=== PATIENT | male | born 1965 | race Hispanic/Latino ===

== ENCOUNTER 2016-07-19 10:00 | Inpatient (IN) | payer OTHER ==
[2016-08-18 08:24] VITALS: BMI 50.8
[2016-09-16] MEDS ORDERED: Lactated Ringer's 1,000 ML IV ONE ×3 (07:00→10:00)
[2016-09-16] MEDS ORDERED: Dexamethasone 4 mg/1 ml IVPB ONE (07:00)
[2016-09-16] MEDS ORDERED: HYDROmorphone 0.5 mg/0.5 ml ISec IVP PRN ×3 (07:28→14:00)
[2016-09-16] MEDS ORDERED: Bupivacaine HCl 0.25% PF (10 ml) Inj ONE ×2 (07:32)
[2016-09-16] MEDS ORDERED: ceFAZolin IV 2 gm in Dextrose 0 GM/0 ML BAG IVPB ONE (07:33)
[2016-09-16] MEDS ORDERED: Propofol 10 mg/ml Inj (20 ML) ONE (07:37)
[2016-09-16] MEDS ORDERED: Neostigmine Methylsulfate 3mg/3ml Syringe IV ONE (10:17)
--- NOTE | 2016-09-16 10:50 | PCM.SURG1 ---
Surgeon's Initial Post Op Note - Surgeon's Notes Surgeon: Dr. Fya Plate Filler: Dr. Downs, Dr. Bazna PGY-2 Type of Anesthesia: General Endo Pre-Operative Diagnosis: morbid obesity, cholelithiasis Operative Findings: see operative report Post-Operative Diagnosis: same Operation Performed: sleeve gastrectomy. laparoscopic cholecystectomy Specimen/Specimens Removed: greater curvature stomach. gallbladder Estimated Blood Loss: EBL {In ML}: 100 Blood Products Given: N/A Drains Used: No Drains Post-Op Condition: Good Date of Surgery/Procedure: 09/16/16 Time of Surgery/Procedure: 08:00
[2016-09-16] MEDS: Lactated Ringer's 1,000 ML IV SCH ×2 (15:00→22:00)
[2016-09-16 18:59] VITALS: RESP 20
[2016-09-17] MEDS: Lactated Ringer's 1,000 ML IV SCH ×2 (03:10→05:40)
[2016-09-17] MEDS ORDERED: Iohexol 240 200 ML IJ ONE (07:34)
[2016-09-17] MEDS ORDERED: Barium Sulfate for Susp 96% w/w 176g Bottle PR ONE (07:35)
[2016-09-17 08:37] LABS: BASO # 0.1 K/uL (0.0-0.2); BASO % 0.7 % (0.0-2.0); HEMOGLOBIN 14.1 g/dL (12.0-18.0); LYMPH # 1.6 K/uL (1.0-4.3); LYMPH % 11.2 % (20.0-40.0); MEAN CELL VOLUME 84.8 fL (80.0-94.0); MEAN CORPUSCULAR HEMOGLOBIN 27.7 pg (27.0-31.0); MEAN CORPUSCULAR HGB CONC 32.7 g/dL (33.0-37.0); MEAN PLATELET VOLUME 8.8 fL (7.2-11.7); MONO # 0.8 K/uL (0.0-0.8); MONO % 5.5 % (0.0-10.0); NEUT # 11.6 K/uL (1.8-7.0); NEUT % 82.6 % (50.0-75.0); RBC 5.1 Mil/uL (4.40-5.90); RED CELL DISTRIBUTION WIDTH 14.5 % (11.5-14.5); WHITE BLOOD COUNT 14.1 K/uL (4.8-10.8)
--- NOTE | 2016-09-17 08:41 | CP.PCM.PN ---
Subjective - Date & Time of Evaluation Date of Evaluation: 09/17/16 Time of Evaluation: 06:45 - Subjective Subjective: Bariatric Sx progress note for Dr. Chepe Hernandez, PGY-1 Pt S & E at bedside. Pt doing well overnight, pain well controlled, OOBTC, ambulating. Denies N/V/F/ C. Per nursing, no acute events overnight. HR<120 overnight on PO cardizem. Objective - Vital Signs/Intake and Output Vital Signs (last 24 hours): Temp Pulse Resp BP Pulse Ox 98.1 F 93 H 20 110/84 95 09/17/16 05:25 09/17/16 05:25 09/17/16 05:25 09/17/16 05:25 09/17/16 05:25 Intake and Output: 09/17/16 09/17/16 06:59 18:59 Intake Total 1750 Balance 1750 - Medications Medications: Current Medications Diltiazem HCl (Cardizem) 120 mg PO TID [facility] Last Admin: 09/16/16 18:00 Dose: 120 mg Enoxaparin Sodium (Lovenox) 40 mg SC DAILY [facility] Famotidine (Pepcid) 20 mg IVP Q12 [facility] Last Admin: 09/16/16 22:33 Dose: 20 mg Hydromorphone HCl (Dilaudid) 1 mg IVP Q2H PRN PRN Reason: Pain, moderate (4-7) Lactated Ringer's (Lactated Ringer's) 1,000 mls @ 150 mls/hr IV .Q6H40M [facility] Last Admin: 09/17/16 05:40 Dose: 150 mls/hr Ketorolac Tromethamine (Toradol) 30 mg IVP Q6 [facility] Stop: 09/18/16 06:01 Last Admin: 09/17/16 05:33 Dose: 30 mg Metoclopramide HCl (Reglan) 10 mg IVP ONCE [facility] Last Admin: 09/17/16 05:36 Dose: 10 mg Metoclopramide HCl (Reglan) 10 mg IVP Q6H [facility] Last Admin: 09/17/16 05:36 Dose: Not Given Ondansetron HCl (Zofran Inj) 4 mg IVP Q6H PRN PRN Reason: Nausea/Vomiting Ondansetron HCl (Zofran Inj) 4 mg IVP ONCE PRN PRN Reason: Nausea/Vomiting - Constitutional Appears: Non-toxic, No Acute Distress - Head Exam Head Exam: ATRAUMATIC, NORMAL INSPECTION, NORMOCEPHALIC - Eye Exam Eye Exam: EOMI, Normal appearance - ENT Exam ENT Exam: Mucous Membranes Moist, Normal Exam - Neck Exam Neck Exam: Full ROM, Normal Inspection - Respiratory Exam Respiratory Exam: Clear to Ausculation Bilateral, NORMAL BREATHING PATTERN. absent: Rales, Rhonchi, Wheezes - Cardiovascular Exam Cardiovascular Exam: Tachycardia, +S1, +S2 - GI/Abdominal Exam GI & Abdominal Exam: Soft. absent: Distended (obese), Firm, Guarding, Rigid, Tenderness - Extremities Exam Extremities Exam: Normal Inspection. absent: Pedal Edema - Neurological Exam Neurological Exam: Alert, Awake, CN II-XII Intact, Oriented x3 - Psychiatric Exam Psychiatric exam: Normal Affect, Normal Mood - Skin Skin Exam: Dry, Normal Color, Warm. absent: Intact (4 upper abdominal incisions with glue in place, non erythematous, non tender, no drainage) Assessment and Plan - Assessment and Plan (Free Text) Assessment: 51M POD#1 s/p sleeve gastrectomy, laparoscopic cholecystectomy. Doing well overnight. Plan: cont pain control Cont HR control FU AM labs FU UGIS today If UGIS neg, will advance to bariatric CLD for lunch Ok to start Lovenox today DW attending Mary, PGY-1
[2016-09-17 09:21] LABS: BLOOD UREA NITROGEN 19 mg/dL (9-20); GFR AFRICAN-AMERICAN > 60; GFR NON-AFRICAN AMERICAN > 60
[2016-09-17 09:22] VITALS: BP 133/80; TEMP 98.2; O2SAT 94
[2016-09-17 09:22] LABS: CALCIUM 8.9 mg/dl (8.6-10.4)
[2016-09-17] MEDS ORDERED: Enoxaparin 40 mg Syringe SC SCH (10:42)
--- NOTE | 2016-09-17 11:03 | RAD ---
PROCEDURE: Upper GI series dated 09/17/2016 HISTORY: Status post gastric sleeve. COMPARISON: No prior study available for comparison. TECHNIQUE: Limited upper GI series performed initially utilizing water-soluble Omnipaque 240 contrast material followed by EZ Paque contrast material. FINDINGS: Patient is status post gastric sleeve. Study reveals a small hiatal hernia. . Minimal transient delay of oral contrast material from distal esophagus into the stomach. Again postoperative changes of gastric sleeve. No evidence of contrast extravasation seen. Contrast material flowed without delay from stomach into the duodenum and small bowel. IMPRESSION: Status post gastric sleeve. Small hiatal hernia. Minimal transient delay of oral contrast material from distal esophagus into the stomach. No evidence contrast extravasation. The findings discussed with Dr. Downs at 10:54 a.m. with written down and read back verification.
--- NOTE | 2016-09-17 15:40 | CP.PCM.DIS ---
Provider - Provider Date of Admission: 09/16/16 06:42 Attending physician: Merrick Fay Primary care physician: Mini Consults: None Time Spent in preparation of Discharge (in minutes): 60 Hospital Course - Lab Results Lab Results: Most Recent Lab Values WBC 14.1 K/uL (4.8-10.8) H 09/17/16 08:32 RBC 5.10 Mil/uL (4.40-5.90) 09/17/16 08:32 Hgb 14.1 g/dL (12.0-18.0) 09/17/16 08:32 Hct 43.2 % (35.0-51.0) 09/17/16 08:32 MCV 84.8 fL (80.0-94.0) 09/17/16 08:32 MCH 27.7 pg (27.0-31.0) 09/17/16 08:32 MCHC 32.7 g/dL (33.0-37.0) L 09/17/16 08:32 RDW 14.5 % (11.5-14.5) 09/17/16 08:32 Plt Count 217 K/uL (130-400) 09/17/16 08:32 MPV 8.8 fL (7.2-11.7) 09/17/16 08:32 Neut % (Auto) 82.6 % (50.0-75.0) H 09/17/16 08:32 Lymph % (Auto) 11.2 % (20.0-40.0) L 09/17/16 08:32 [place] % (Auto) 5.5 % (0.0-10.0) 09/17/16 08:32 Eos % (Auto) 0.0 % (0.0-4.0) 09/17/16 08:32 Baso % (Auto) 0.7 % (0.0-2.0) 09/17/16 08:32 Neut # 11.6 K/uL (1.8-7.0) H 09/17/16 08:32 Lymph # 1.6 K/uL (1.0-4.3) 09/17/16 08:32 [place] # 0.8 K/uL (0.0-0.8) 09/17/16 08:32 Eos # 0.0 K/uL (0.0-0.7) 09/17/16 08:32 Baso # 0.1 K/uL (0.0-0.2) 09/17/16 08:32 Sodium 139 mmol/L (132-148) 09/17/16 08:32 Potassium 4.0 mmol/L (3.6-5.2) 09/17/16 08:32 Chloride 103 mmol/L (98-107) 09/17/16 08:32 Carbon Dioxide 27 mmol/L (22-30) 09/17/16 08:32 Anion Gap 13 (10-20) 09/17/16 08:32 BUN 19 mg/dL (9-20) 09/17/16 08:32 Creatinine 0.8 MG/DL (0.8-1.5) 09/17/16 08:32 Est GFR ( Amer) > 60 09/17/16 08:32 Est GFR (Non-Af Amer) > 60 09/17/16 08:32 Random Glucose 104 mg/dL (75-110) 09/17/16 08:32 Calcium 8.9 mg/dl (8.6-10.4) 09/17/16 08:32 Blood Type AB POSITIVE 09/16/16 07:40 Antibody Screen Negative 09/16/16 07:40 - Hospital Course Hospital Course: Patient admitted to hospital for surgical intervention for morbid obesity. Taken to OR for gastric sleeve and laparoscopic cholecystectomy, now POD#1. Pt tolerated procedures well, minimal pain, advanced to bariatic clear liquid diet - well tolerated. Patient stable, doing well post op, cleared for discharge home as per surgery team with appropriate follow up in the office. Discharge Exam - Head Exam Head Exam: ATRAUMATIC, NORMAL INSPECTION, NORMOCEPHALIC Discharge Plan - Follow Up Plan Condition: GOOD Disposition: HOME/ ROUTINE Instructions: Heart Failure (DC), Pain Management After Surgery (DC), Laparoscopic Cholecystectomy (DC), Laparoscopic Gastrectomy (DC), Laparoscopic Sleeve Gastrectomy (DC) Additional Instructions: Please have patient start on Stage 1 Bariatric diet as outlined in office handouts. To follow up with surgeon next , already scheduled. Call MD if worsening pain/fever at [phone] Referrals: Merrick Fay DO [Staff Provider] - Zach Downs MD [Staff Provider] -
[2016-09-17 16:30] VITALS: PULSE 92
--- NOTE | 2016-09-23 17:25 | PCM.OP ---
Operative Report - Operative Report Date of Surgery/Procedure: 09/16/16 Time of Surgery/Procedure: 09:00 Surgeon: Merrick Fay Technical Cable Jointer: Dr. Downs Pre-Operative Diagnosis: 1) Morbid Obesity. 2) Cholelithiasis Post-Operative Diagnosis: 1) Morbid Obesity. 2) Cholelithiasis Indication for Surgery: This is a 51 year old gentleman with BMI 50.9 and comorbid conditions of hypertension, obstructive sleep apnea, and patient also has cholelithiasis with biliary colic. Patient failed for conservative methods of weight loss and after all risk benefits and alternatives of procedure were explained to patient, patient agreed upon sleeve gastrectomy over laparoscopic cholecystectomy. Operative Findings: No evidence of hiatal hernia. Negative glucose test. Inflamed gallbladder Procedure/Operation Description: Procedure: 1) Laparoscopic sleeve gastrectomy. 2) TAP block. 3) Intraoperative EGD. 4) Laparoscopic cholecystectomy. Operative Desciption. The patient was brought to the operating room and placed in supine position on the operating room table. General endotracheal anesthesia was induced by the Anesthesia Team. A Denney catheter was inserted to decompress the bladder. Precautions were taken to pad the patient well using gel padding in the back, feet and arms to prevent postoperative pain. The patient was prepped and draped in the usual sterile fashion. The medical laboratory assistant placed a Veress needle in the left upper quadrant below the costal margin to establish pneumoperitoneum to 15 mmHg. A 12mm Optiview port along with 0 degree laparoscope was inserted in the midline, superior to the umbilicus with no evidence of injury upon entering. Next the scope was changed to 45 degree and the Veress needle was removed under vision. Under laparoscopic guidance, a transversus abdominus plane block was performed by injecting 30 cc of 0.25% Marcaine into multiple sites along the left flank. The solution was injected into the plane between the internal oblique and the transversus abdominus muscles to aid in postoperative analgesia. This procedure was repeated on the right flank for maximum efficacy. A 15 mm trocar was placed in the right midclavicular line above the umbilicus. Additionally, two 5mm trocars were placed in the right and left flank below the costal margin. All trocars were placed under direct vision. A liver retractor ( Juanito) was inserted through a separate stab incision 1 cm below the xiphoid process and was attached to a retracting device secured to the left side of the table. The entire procedure was performed laparoscopically. The primary surgeon operated from the right side of the patient and the medical laboratory assistant operated from the left side of the patient. The lesser sac was entered by first dividing the gastrocolic ligament along the mid-point of the greater curvature of the stomach with a harmonic scalpel. The dissection was performed close to the stomach to avoid the gastroepiploic artery. Dissection proceeded proximally toward the angle of His. The medical laboratory assistant dissected out and ligated the short gastric arteries with the harmonic scalpel. Care was taken to avoid injury to the spleen. We then returned to the point where the dissection began more distally on the greater curvature. The medical laboratory assistant used the harmonic scalpel and continued. distally along the greater curvature to approximately 4 to 6 cm from the pylorus. At this point a 40 [place] bougie was inserted by the Anesthesia Team and was aligned medially and passed under vision to the region of the pylorus. The medical laboratory assistant grasped the greater curvature of the stomach with a loop grasper and retracted laterally. The sleeve gastrectomy was performed using sequential firings of a 60mm endoGIA stapler ([employer]). For the initial two firings a green load was used where the stomach tissue was thicker. The remaining firings were done using gold and blue loads. Care was taken to avoid narrowing the distal aspect of the sleeve. The anterior and posterior vagus nerves were identified and preserved throughout their course. Sequential firings of the stapler continued up to the angle of His. Care was taken to ensure equal tension along the entire staple line to prevent kinking of the sleeve. The entire staple line was reinforced with Seamgurad buttressing material to help reduce the chance of bleeding or a leak. An upper endoscopy was performed (to be dictated separately) in order to evaluate the gastric mucosa as well as perform a leak test. The distal stomach was occluded and the upper abdomen was filled with saline solution in order to submerge the entire staple line. Air was insufflated and no bubbles were visualized. The saline was suctioned off and the scope removed. The resected stomach was placed in a large Endocatch bag for later removal. The gallbladder was grasped at the fundus and Hartmanns pouch and was retracted superolaterally. Loose adhesions of omentum to the anterior surface of the gallbladder were lysed bluntly using the [place] dissector. Dissection began at the lateral aspect of the gallbladder near the junction between Hartmanns pouch and the cystic duct. Dissection continued until the cystic duct was identified and cleared free of surrounding tissue. The cystic duct was doubly ligated with hemoclips and was cut with Endoshears. Dissection proceeded posteriorly where the cystic artery was identified and cleared free of surrounding tissue. The cystic artery was doubly ligated and cut with Endoshears. The gallbladder was dissected off the gallbladder fossa of the liver using electrocautery with simultaneous hemostasis. The gallbladder was placed in an EndoCatch bag for later removal. The gallbladder fossa was inspected and once again hemostasis was achieved with electrocautery. The area was thoroughly irrigated with sterile saline solution until the solution returned clear. The gallbladder was removed through the umbilical port site and was sent off of the field as specimen. The fascia of the 15 mm port site was closed using 0 Vicryl interrupted suture on the Endoclose device. The liver retractor and all ports were removed under vision and pneumoperitoneum evacuated. The specimen was removed through the 15mm port site and was sent off the field. The skin on all port sites was closed with 4-0 Monocryl subcuticular sutures followed by Dermabond for dressing. All sponge and instruments counts were correct at the end of the procedure. The patient tolerated the procedure well, was extubated in the operating room and was transferred to the recovery room in stable condition. Estimated Blood Loss: 100cc Complications: None Discharge & Condition: Stable, PACU
--- NOTE | 2016-09-30 20:52 | OP ---
PROCEDURE DATE: 09/16/2016 PREOPERATIVE DIAGNOSES: 1. Morbid obesity, BMI 50.9. 2. Cholelithiasis. POSTOPERATIVE DIAGNOSES: 1. Morbid obesity, BMI 50.9. 2. Cholelithiasis. PROCEDURES PERFORMED: 1. Laparoscopic sleeve gastrectomy. 2. TAP block. 3. Intraoperative EGD. 4. Laparoscopic cholecystectomy. SURGEON: Merrick Fay DO RN PATIENT SERVICES: Zach Downs MD ANESTHESIA: General. OPERATIVE FINDINGS: 1. No evidence of hiatal hernia. 2. Negative intraoperative *------*. 3. Inflamed gallbladder. ESTIMATED BLOOD LOSS: 100 mL. COMPLICATIONS: None. DISPOSITION: Stable to PACU. INDICATION FOR PROCEDURE: This is a 51-year-old gentleman with BMI of 50.9 with *------* hypertension, obstructive sleep apnea, and cholelithiasis with biliary colic. He failed conservative methods of weight loss and met NIH criteria for weight loss surgery. After all risks, benefits, and alternatives of procedures were explained, the patient agreed to sleeve gastrectomy with laparoscopic cholecystectomy. DESCRIPTION OF PROCEDURE: The patient was brought to the operating room and placed in supine position on the operating room table. General endotracheal anesthesia was induced by the anesthesia team. A Denney catheter was inserted to decompress the bladder. Precautions were taken to pad the patient well using gel padding in the back, feet, and arms to prevent postoperative pain. The patient was prepped and draped in the usual sterile fashion. The accountant assistant placed a Veress needle in the left upper quadrant below the costal margin to establish pneumoperitoneum to 15 mmHg. A 12-mm Optiview port along with 0-degree laparoscope was inserted in the midline, superior to the umbilicus with no evidence of injury upon entering. Next, the scope was changed to 45 degree and the Veress needle was removed under vision. Under laparoscopic guidance, a transversus abdominis plane block was performed by injecting 30 cc of 0.25% Marcaine into multiple sites along the left flank. The solution was injected into the plane between the internal oblique and the transversus abdominis muscles to aid in postoperative analgesia. This procedure was repeated on the right flank for maximum efficacy. A 15-mm trocar was placed in the right midclavicular line above the umbilicus. Additionally, two 5-mm trocars were placed in the right and left flank below the costal margin. All trocars were placed under direct vision. A liver retractor (Juanito) was inserted through a separate stab incision 1 cm below the xiphoid process and was attached to a retracting device secured to the left side of the table. The entire procedure was performed laparoscopically. The primary surgeon operated from the right side of the patient and the accountant assistant operated from the left side of the patient. The lesser sac was entered by first dividing the gastrocolic ligament along the midpoint of the greater curvature of the stomach with a harmonic scalpel. The dissection was performed close to the stomach to avoid the gastroepiploic artery. Dissection proceeded proximally toward the angle of His. The accountant assistant dissected out and ligated the short gastric arteries with the harmonic scalpel. Care was taken to avoid injury to the spleen. We then returned to the point, where the dissection began more distally on the greater curvature. The accountant assistant used the Harmonic scalpel and continued distally along the greater curvature to approximately 4 to 6 cm from the pylorus. At this point, a 40-Iraqi bougie was inserted by the anesthesia team and was aligned medially and passed under vision to the region of the pylorus. The accountant assistant grasped the greater curvature of the stomach with a loop grasper and retracted laterally. The sleeve gastrectomy was performed using sequential firings of a 60-mm Endo SIDNEY stapler ([place]). For the initial two firings, a green load was used where the stomach tissue was thicker. The remaining firings were done using gold and blue loads. Care was taken to avoid narrowing the distal aspect of the sleeve. The anterior and posterior vagus nerves were identified and preserved throughout their course. Sequential firings of the stapler continued up to the angle of His. Care was taken to ensure equal tension along the entire staple line to prevent kinking of the sleeve. The entire staple line was reinforced with SeamGuard buttressing material to help reduce the chance of bleeding or a leak. An upper endoscopy was performed (to be dictated separately) in order to evaluate the gastric mucosa as well as perform a leak test. The distal stomach was occluded and the upper abdomen was filled with saline solution in order to submerge the entire staple line. Air was insufflated and no bubbles were visualized. The saline was suctioned off and the scope removed. The resected stomach was placed in a large EndoCatch bag for later removal. The area was carefully inspected and hemostasis ensured. The fascia of the 15-mm port site was closed using 0 Vicryl interrupted suture on the Endoclose device. The liver retractor and all ports were removed under vision and pneumoperitoneum evacuated. The specimen was removed through the 15-mm port site and was sent off the field. The skin on all port sites was closed with 4-0 Monocryl subcuticular sutures followed by Dermabond for dressing. All sponge and instruments counts were correct at the end of the procedure. The patient tolerated the procedure well, was extubated in the operating room and was transferred to the recovery room in stable condition. PREPARATION AND PROCEDURE: The patient was brought to the operating room and placed in supine position on the operating room table. Both the upper and lower extremities were padded to prevent postoperative joint pain. General endotracheal anesthesia was induced by the anesthesia team. The abdomen was prepped and draped in the usual sterile fashion. Using a 15 blade, a small supraumbilical incision was made through the skin and subcutaneous tissue. Further dissection was carried down using electrocautery with simultaneous hemostasis. Dissection proceeded until the fascia was identified. The fascia was grasped with a Wilfrid clamp and was elevated. Pneumoperitoneum was created to 15 mmHg using a Veress needle. The Veress needle was removed and the abdomen was entered using a 12-mm optical viewing trocar with no evidence of injury upon entering. The patient was placed in reverse Trendelenburg position with the right side up to better visualize the right upper quadrant. Two 5-mm trocars were inserted under direct visualization in the right upper quadrant. Similarly, another 12-mm trocar was inserted in the epigastrium under direct visualization. The gallbladder was grasped at the fundus and Kev pouch and was retracted superolaterally. Loose adhesions of omentum to the anterior surface of the gallbladder were lysed bluntly using the [place] dissector. Dissection began at the lateral aspect of the gallbladder near the junction between Kev pouch and the cystic duct. Dissection continued until the cystic duct was identified and cleared free of surrounding tissue. The cystic duct was doubly ligated with Hemoclips and was cut with Endo Sariah. Dissection proceeded posteriorly where the cystic artery was identified and cleared free of surrounding tissue. The cystic artery was doubly ligated and cut with Endo Sariah. The gallbladder was dissected off the gallbladder fossa of the liver using electrocautery with simultaneous hemostasis. The gallbladder was placed in an EndoCatch bag for later removal. The gallbladder fossa was inspected and once again hemostasis was achieved with electrocautery. The area was thoroughly irrigated with sterile saline solution until the solution returned clear. All trocars were removed under vision and pneumoperitoneum evacuated. The gallbladder was removed through the umbilical port site and was sent off of the field as specimen. The umbilical fascia was approximated using 0 Vicryl interrupted sutures. The skin was closed using subcuticular 4-0 Monocryl sutures followed by Dermabond for dressing. All sponge and instrument counts were correct at the end of the procedure. POSTOPERATIVE CONDITION: The patient tolerated the procedure well and was brought to the recovery room in satisfactory condition. Merrick Fay DO
== END 2016-09-17 16:30 | disposition home or self-care (01) | DRG 620 ==
LOC: C.9S 09-16 06:42 → C.6T 09-16 18:52
PROVIDERS: ADMIT Surgery; ATTEND Surgery
PROC: 0DB64Z3 Excision of Stomach, Percutaneous Endoscopic Approach, Vertical (ICD-10-PCS; principal; 2016-09-16 07:45)
PROC: 0FT44ZZ Resection of Gallbladder, Percutaneous Endoscopic Approach (ICD-10-PCS; 2016-09-16 07:45)
DX: E66.01 Morbid (severe) obesity due to excess calories (principal); K80.10 Calculus of gallbladder with chronic cholecystitis without obstruction; I10 Essential (primary) hypertension; Z68.43 Body mass index [BMI] 50.0-59.9, adult; G47.33 Obstructive sleep apnea (adult) (pediatric)